=== PATIENT | male | born 1950 | race Caucasian/White ===

== ENCOUNTER 2016-11-30 10:09 | Day surgery (SDC) | payer MEDICARE, OTHER ==
[~2016-11-30 10:09] MED LIST: RINGER'S SOLUTION,LACTATED 1,000 ML IV PRN
[2016-11-30 12:49] VITALS: BP 139/70
--- NOTE | 2016-11-30 18:19 | OR ---
Operative Report - Dictated Report Narrative: OPERATIVE REPORT DATE OF OPERATION: 11/30/16 PREOPERATIVE DIAGNOSIS: Rectal bleeding. No recent dedicated colon studies. POSTOPERATIVE DIAGNOSIS: 4 mm polyp at 95 cm (pathology pending). Sigmoid diverticulosis. OPERATION: Colonoscopy with hot biopsy forceps polypectomy at 95 cm SURGEON: Micah Hubbard MD ANESTHESIA: AMARI Mandujano CRNA INDICATIONS FOR PROCEDURE: The patient is a 66-year-old male referred by Mana CHEUNG. The patient has had a single episode of bright red painless rectal bleeding. He has not had a colonoscopy for many years. There is no family history of colon cancer. FINDINGS: Very capacious proximal colon. Moderate sigmoid diverticulosis. 4 mm area of polypoid change at 95 cm (pathology pending) NARRATIVE OF PROCEDURE: The patient was identified in the holding area, and prior to the administration of anesthetic, a multidisciplinary timeout was observed. With the patient in the left lateral position and after the administration of intravenous sedation, the perineum was inspected. There was no evidence of pilonidal disease or skin breakdown. The external appearance of the anus was normal. Sphincter tone was good. The flexible fiberoptic colonoscope was inserted into the rectum which was insufflated with air. The rectal mucosa and submucosal vascular pattern appeared normal, the prep was seen to be complete. The scope was advanced through the sigmoid colon, which contained numerous large non-impacted noninflamed diverticular openings. The scope was advanced up the descending colon, and around the splenic flexure where the triangular haustral architecture of the transverse colon was seen. The scope was advanced across the transverse colon, around the hepatic flexure to the cecum, where the confluence of tenia and the ileocecal valve were identified. The mucosa at this level appeared normal. The scope was then slowly withdrawn in a circular fashion so that all aspects of colonic mucosa were inspected. The proximal colon was very capacious in character. The colon was mildly redundant requiring standard reduction maneuvers and external pressure on the abdomen and the entire 160 cm of scope to reach the cecum. The haustral architecture appeared well preserved throughout with no evidence of external compression. The mucosa and submucosal vascular pattern appeared normal, specifically there was no gross evidence to suggest colitis or inflammatory bowel disease and no AV malformations were seen. The diverticulosis was moderate in degree and confined primarily to the sigmoid colon. A 4 mm area of polypoid change was encountered at 95 cm. This was biopsied and then thoroughly destroyed with electrocautery. The site was seen to be complete and hemostatic. The scope was gradually withdrawn to the level of the rectum. As much insufflated air as possible was removed. The scope was withdrawn from the patient and the procedure terminated. The patient tolerated the anesthetic and procedure well without complication and was transferred back to the ambulatory surgery area awake and in stable condition. The patient remained stable throughout a period of postoperative observation. He denied abdominal discomfort, was able to tolerate by mouth intake, and was up without assistance. I shared the operative findings with the patient and him and his and he was given copies of the photographs which appear in the medical record. He was discharged home with instructions not to engage in hazardous activity today, but may resume normal activity tomorrow, and advance diet as tolerated. He is to continue those medications as listed in the history and physical exam. I made arrangements to contact him with the biopsy reports and will make additional recommendations for treatment and follow-up based upon those results. A pamphlet on diverticular disease was reviewed with him and given to him. I suggested a trial of Benefiber or equivalent on a daily basis to titrate as needed. Reviewed and electronically signed
[2016-12-02] MEDS ORDERED: RINGER'S SOLUTION,LACTATED 1,000 ML IV PRN (13:52)
== END 2016-11-30 10:10 | disposition home or self-care (01) ==
LOC: AMB 10:09
PROVIDERS: ATTEND Surgery
PROC: 0DBE8ZX Excision of Large Intestine, Via Natural or Artificial Opening Endoscopic, Diagnostic (ICD-10-PCS; principal; 2016-11-30 10:55)
DX: Z12.11 Encounter for screening for malignant neoplasm of colon (principal); K63.5 Polyp of colon; K57.30 Diverticulosis of large intestine without perforation or abscess without bleeding; I10 Essential (primary) hypertension; E78.5 Hyperlipidemia, unspecified; K21.9 Gastro-esophageal reflux disease without esophagitis; Z68.30 Body mass index [BMI] 30.0-30.9, adult

== ENCOUNTER 2016-12-09 13:10 | Day surgery (SDC) | payer MEDICARE, OTHER ==
[~2016-12-09 13:10] MED LIST changes: +NORMAL SALINE 1,000 ML IV PRN; -RINGER'S SOLUTION,LACTATED 1,000 ML IV PRN
--- NOTE | 2016-12-09 14:34 | OR ---
Operative Report - Dictated Report Narrative: Procedure performed: TRUS guided prostate biopsy Anesthesia: IV/Mac Preoperative diagnosis : elevated PSA Postoperative diagnosis: Same Description of procedure: Preoperative antibiotics administered. Consent obtained. Patient positioned in the left lateral decubitus position. Probe inserted. Measurements taken. Prostate volume: 35 grams Biopsies were then obtained from either side directed laterally from the base, mid, and apical portions of the gland. Total biopsies right: 6 Total biopsies left: 6 Findings: Left half of the gland laterally hypoechoic appearance. If this side has malignancy I would say majority of that side is involved. Normal seminal vesicles. Right side looked okay. Patient tolerated well. Will return to clinic in 7-10 days for counseling o EBL: 0cc Specimen: prostate Condition: tolerated procedure
[2016-12-09] MEDS ORDERED: ACETAMINOPHEN 500 MG TABLET PO ONE (15:11)
[2016-12-09 15:44] VITALS: BP 143/77
== END 2016-12-09 13:11 | disposition home or self-care (01) ==
LOC: AMB 13:10
PROVIDERS: ATTEND Urology
PROC: 0V903ZX Drainage of Prostate, Percutaneous Approach, Diagnostic (ICD-10-PCS; principal; 2016-12-09 15:15)
DX: C61 Malignant neoplasm of prostate (principal); E66.9 Obesity, unspecified; Z68.30 Body mass index [BMI] 30.0-30.9, adult